=== PATIENT | male | born 2000 | race Caucasian/White ===

== ENCOUNTER 2023-03-16 23:06 | Emergency (ER) | payer OTHER ==
[2023-03-16] MEDS ORDERED: Ibuprofen 600 MG TAB ONE (23:43)
== END 2023-03-16 23:49 | disposition home or self-care (01) ==
LOC: MADERS 23:06
DX: S93.602A Unspecified sprain of left foot, initial encounter (principal); F17.210 Nicotine dependence, cigarettes, uncomplicated; F17.290 Nicotine dependence, other tobacco product, uncomplicated; X50.1XXA Overexertion from prolonged static or awkward postures, initial encounter; Y93.01 Activity, walking, marching and hiking; Y92.69 Other specified industrial and construction area as the place of occurrence of the external cause; Y99.8 Other external cause status